=== PATIENT | female | born 1945 | race Caucasian/White ===

== ENCOUNTER → 2016-06-08 | Outpatient (CLI) | payer MEDICARE, OTHER ==
[~2016-06-08] MED LIST: CALC500T49 PO; ESTR0.5T3 PO; PERCOCET PO; VITMTA PO
[2016-06-08 14:16] LABS: ALBUMIN 3.4 GM/DL (3.2-5.2); ALBUMIN/GLOBULIN RATIO 1.13 (1.00-1.93); BILIRUBIN,TOTAL 0.5 MG/DL (0.2-1.0); CALCIUM LEVEL 9.1 MG/DL (8.8-10.2); CREATININE FOR GFR 1.55 MG/DL (0.55-1.02); POTASSIUM SERUM 4.1 MEQ/L (3.5-5.1); TOTAL PROTEIN 6.4 GM/DL (6.4-8.2)
== END ==
LOC: M LAB 12:11
PROVIDERS: ATTEND Internal Medicine
DX: E55.9 Vitamin D deficiency, unspecified (principal); R00.1 Bradycardia, unspecified

== ENCOUNTER → 2016-06-08 | Outpatient (CLI) | payer MEDICARE, OTHER | LOC: M LAB 12:15 | PROVIDERS: ATTEND Internal Medicine Endocrinology, Diabetes & Metabolism | DX: M85.89 Other specified disorders of bone density and structure, multiple sites (principal) ==

== ENCOUNTER → 2016-06-13 | Outpatient (CLI) | payer MEDICARE, OTHER ==
[2016-06-13 14:34] LABS: ALBUMIN 3.5 GM/DL (3.2-5.2); ANION GAP 5 MEQ/L (8-16); BLOOD UREA NITROGEN 26 MG/DL (7-18); CALCIUM LEVEL 8.8 MG/DL (8.8-10.2); CARBON DIOXIDE LEVEL 31 MEQ/L (21-32); CHLORIDE LEVEL 107 MEQ/L (98-107); CREATININE FOR GFR 0.87 MG/DL (0.55-1.02); GLOMERULAR FILTRATION RATE > 60.0 (>39); GLUCOSE, FASTING 91 MG/DL (83-110); PHOSPHORUS LEVEL 3.7 MG/DL (2.5-4.9); POTASSIUM SERUM 4.1 MEQ/L (3.5-5.1); SODIUM LEVEL 143 MEQ/L (136-145)
== END ==
LOC: M LAB 12:55
PROVIDERS: ATTEND Internal Medicine
DX: R94.4 Abnormal results of kidney function studies (principal)

== ENCOUNTER → 2016-06-28 | Outpatient (CLI) | payer MEDICARE, OTHER ==
--- NOTE | 2016-06-28 16:42 | REP ---
Bilateral carotid artery duplex ultrasound: Peak flow velocity analysis: RIGHT LEFT ICA. Peak flow velocity cm/sec 60 50 ICA Diastolic flow velocity cm/sec 24 20 ICA/CCA Ratio 0.46 0.73 There is mild atheromatous plaque extending from the bulbs into the proximal right and left ICA is and into the right and left proximal ECA is. Peak flow velocities are normal bilaterally. The findings indicate less than 50% narrowing bilaterally. There is no significant stenosis on the right or the left. There is antegrade flow in the vertebral arteries bilaterally Signed by Bryant Edmonds MD 06/28/2016 04:33 P
== END ==
LOC: M RAD 14:50
PROVIDERS: ATTEND Internal Medicine
DX: H53.9 Unspecified visual disturbance (principal)

== ENCOUNTER → 2016-07-03 | Outpatient (CLI) | payer MEDICARE, OTHER | LOC: M LAB 16:08 | PROVIDERS: ATTEND Internal Medicine Endocrinology, Diabetes & Metabolism | DX: M81.0 Age-related osteoporosis without current pathological fracture (principal) ==

== ENCOUNTER → 2016-09-17 | Outpatient (CLI) | payer MEDICARE, OTHER ==
--- NOTE | 2016-09-17 09:29 | REP ---
RIGHT HAND, COMPLETE: 09/17/2016. COMPARISON: 11/22/2014. CLINICAL HISTORY: 5th finger trauma. FINDINGS: The four views demonstrate an old healed and remodeled spiral fracture of the shaft of the 5th metacarpal. There is a new fracture at the proximal metaphysis of the proximal phalanx of the 5th digit. There is a component extending to the articular surface of the phalanx at the 5th MCP joint without displacement. Very minimal angulation of the distal fragment with the fracture apex toward the radius. No other acute findings. IMPRESSION: 1. Mildly comminuted intra-articular fracture proximal metaphysis proximal phalanx 5th digit without significant displacement and only mild angulation. 2. Old spiral fracture of the 5th metacarpal shaft is healed and remodeled. No other acute finding. Signed by Gray Mckoy MD 09/17/2016 10:55 A
== END ==
LOC: M WUC 08:40
PROVIDERS: ATTEND Physician Assistant
DX: M25.541 Pain in joints of right hand (principal)

== ENCOUNTER → 2017-01-05 | Outpatient (REF) | payer MEDICARE, OTHER ==
[2017-01-05 16:29] LABS: CALCIUM LEVEL 9.4 MG/DL (8.8-10.2)
== END ==
LOC: M LABDRAW1 14:04
PROVIDERS: ATTEND Internal Medicine Endocrinology, Diabetes & Metabolism
DX: M81.0 Age-related osteoporosis without current pathological fracture (principal); E55.9 Vitamin D deficiency, unspecified

== ENCOUNTER → 2017-07-17 | Outpatient (CLI) | payer MEDICARE, OTHER ==
[2017-07-17 12:27] LABS: CALCIUM LEVEL 9.6 MG/DL (8.8-10.2)
== END ==
LOC: M LRY 10:18
DX: M81.0 Age-related osteoporosis without current pathological fracture (principal)
CPT/HCPCS: 82310

== ENCOUNTER → 2018-01-17 | Outpatient (REF) | payer MEDICARE, OTHER ==
[2018-01-17 12:35] LABS: CALCIUM LEVEL 9.3 MG/DL (8.8-10.2)
[2018-01-17 12:42] LABS: TOTAL 25(OH) VITAMIN D 59.6 NG/ML (30.0-100.0)
== END ==
LOC: M LABDRAW1 11:26
DX: M81.0 Age-related osteoporosis without current pathological fracture (principal); E55.9 Vitamin D deficiency, unspecified
CPT/HCPCS: 82310

== ENCOUNTER → 2018-07-24 | Outpatient (REF) | payer MEDICARE, OTHER | LOC: M LABDRAW1 13:04 | PROVIDERS: ATTEND Internal Medicine Endocrinology, Diabetes & Metabolism | DX: M81.0 Age-related osteoporosis without current pathological fracture (principal) ==

== ENCOUNTER 2018-09-02 08:36 | Emergency (ER) | payer MEDICARE, OTHER ==
[~2018-09-02] VITALS: Ht 157.5 cm; Wt 61.0 kg
[2018-09-02] MEDS ORDERED: METOCLOPRAMIDE INJ 10MG/2ML VIAL (J2765) IV ONE (09:30)
[2018-09-02] MEDS ORDERED: ISOVUE-370 76% 100ML VIAL (Q9967) As Ordered ONE (09:40)
[2018-09-02 09:42] LABS: BASO % 0.2 % (0.0-1.0); EOS % 0.2 % (0.0-3.0); HEMATOCRIT 39.7 % (36.0-47.0); HEMOGLOBIN 13.8 g/dl (12.0-15.5); LYMPH # 0.7 10^3/uL (1.5-4.5); LYMPH % 5.8 % (24.0-44.0); MEAN CORPUSCULAR HEMOGLOBIN 31.8 pg (27.0-33.0); MEAN CORPUSCULAR HGB CONC 34.8 g/dl (32.0-36.5); MEAN CORPUSCULAR VOLUME 91.5 fl (80.0-96.0); MONO # 0.6 10^3/uL (0.0-0.8); NEUTROPHILS # 9.9 10^3/uL (1.8-7.7); NEUTROPHILS % 88.4 % (36.0-66.0); PLATELET COUNT, AUTOMATED 114 10^3/uL (150-450); RED BLOOD COUNT 4.34 10^6/uL (4.00-5.40); WHITE BLOOD COUNT 11.2 10^3/uL (4.0-10.0)
[2018-09-02 09:53] LABS: INR 1.02; PARTIAL THROMBOPLASTIN TIME 20.3 SECONDS (25.4-37.6); PROTHROMBIN TIME 13.5 SECONDS (12.1-14.4)
--- NOTE | 2018-09-02 10:46 | REP ---
Left hand: Four views. History: Pain after falling from a horse. Findings: There is moderate soft tissue swelling dorsally over the carpus. There is an old distal radial fracture with volar screw plate fixation device in place. There is an old fragmented an ununited ulnar styloid chip fracture. No acute radial or ulnar fracture is appreciated. No carpal fractures seen. There is moderate osteoarthritis at the first carpometacarpal articulation. Osteoarthritic spurring is noted at the IP joint of the thumb and the DIP joints of the index, long and small fingers. Impression: Old distal radial and ulnar fractures. No acute fracture seen. Osteoarthritis at the first carpometacarpal joint. Dorsal carpal swelling. Electronically Signed by Jaylan Machado MD 09/02/2018 03:38 P
--- NOTE | 2018-09-02 10:49 | REP ---
CT thoracic spine without contrast. HISTORY: Trauma COMPARISON : None There is a fracture of the right C7 transverse process. There are fractures of the right and left T1 lamina, spinous process and right transverse process. There is a burst fracture of the tip of vertebral body with minimal height loss and minimal retropulsion. There are fractures of the right T2 pedicle, right T2 millisecond lamina. There are fractures of the left T2 facet and lamina. There is a fracture of the right T2 transverse process. There is a fracture of the superior endplate of the T3 vertebral body. There is no height loss. There is a fracture of the right 3rd rib. There is no subluxation. There is no definite disc bulge or herniation. There is an old compression fracture of the T12 vertebral body with minimal height loss. IMPRESSION: There are fractures of the C7, T1 and T2 levels as described above. Electronically Signed by Tyrese Miranda MD 09/02/2018 10:40 A
--- NOTE | 2018-09-02 10:51 | REP ---
CT CHEST WITH IV CONTRAST: TECHNIQUE: Axial contrast enhanced images from the thoracic inlet to the upper abdomen using 100 mL Isovue 370 intravenous contrast material with multiplanar reformations. Mild dependant atelectatic changes are seen predominately in the right lung. There is no pleural or pericardial effusion. Heart is normal in size. No adenopathy is seen. Thoracic aorta demonstrates homogenous opacification with no evidence of traumatic injury. Visualized upper abdominal structures are unremarkable. Note is made of a fracture of the body of T2. There are also fractures of the spinous process of T1 and the right transverse process of T1. No other fracture is seen of the visualized osseous structures. IMPRESSION: No acute traumatic findings in the chest as discussed above. There are fractures of the body of T2, also of the spinous process and right transverse process of T1. Please see CT thoracic spine report for more details. Electronically Signed by Bryant Segura MD 09/03/2018 11:31 A
--- NOTE | 2018-09-02 10:57 | REP ---
CT Lumbar Spine without contrast HISTORY: Trauma COMPARISON: None There is no disc bulge or herniation at the L1-2 and L2-3 levels. The nerves exit the neural foramina without compression. A diffuse disc bulge is present at the L3-4 level. There is minimal compression of the thecal sac. There is hypertrophy of the posterior articulating facets. The L3 nerves exit the neural foramina without compression. A diffuse disc bulge is present at the L4-5 level. There is hypertrophy of the ligamenta flava and posterior articulating facets. There are 3 mm of grade 1 spondylolisthesis of L4 and L5. These findings produce moderate central canal stenosis. The L4 nerves exit the neural foramina without compression. A diffuse disc bulge is present at the L5-L1 level. There is minimal compression of the thecal sac. There is hypertrophy of the posterior articulating facets. The L5 nerves exit the neural foramina without compression. The L4-5 intervertebral disc is decreased in height consistent with disc degeneration. There is an old compression fracture of the T12 vertebral body with minimal height loss. IMPRESSION: 1. There is no acute fracture . 2. Diffuse disc bulges at the L3-4 and L5-L1 levels with minimal thecal sac compression. 3. Moderate central canal stenosis at the L4-5 level secondary to disc bulge, ligamentous and facet hypertrophy and grade 1 spondylolisthesis. Electronically Signed by Tyrese Miranda MD 09/02/2018 10:49 A
--- NOTE | 2018-09-02 10:58 | REP ---
Left wrist series: Four views. History: Injury in a fall from a horse. Findings: There is a screw plate fixation device along the volar aspect of the distal radius consistent with previous fracture. There is an old ulnar styloid chip fracture with ununited fragments. There is dorsal carpal swelling. Frontal and oblique radiographs show an acute appearing fracture line in the distal radial metaphysis suggesting an acute nondisplaced fracture. No carpal fracture is seen. There is osteoarthritis at the first carpometacarpal articulation. Impression: Nondisplaced acute fracture of the distal radius. Status post volar screw plate fixation for prior radial fracture. Old fragmented ununited ulnar styloid fracture. Osteoarthritis of the first [employer] joint. Electronically Signed by Jaylan Machado MD 09/02/2018 03:39 P
--- NOTE | 2018-09-02 10:59 | REP ---
Left foot series: Four views. History: Pain after trauma. Findings: Four views of the left foot demonstrate acute slightly impacted fractures of the distal metaphyses of the third and fourth metatarsals. There is osteoarthritic spurring at the first MTP joint. There is old appearing post traumatic deformity of the proximal phalanx of the fifth toe. Impression: Fractures of the distal third and fourth metatarsals. Electronically Signed by Jaylan Machado MD 09/02/2018 03:40 P
[2018-09-02] MEDS ORDERED: B COTAB3 PO (11:26)
[2018-09-02] MEDS ORDERED: D 1010004 PO (11:26)
[2018-09-02] MEDS ORDERED: NS 1,000 ML IV SCH (11:30)
[2018-09-02] MEDS ORDERED: MORPHINE 2 MG/ML 1ML SYRINGE (J2270) IV ONE (12:00)
--- NOTE | 2018-09-02 12:27 | REP ---
CT cervical spine without contrast HISTORY: Trauma COMPARISON: None Disc bulges are present at the C3-4 and C4-5 levels. Disc bulges with associated osteophyte formation are present at the C5-6 and C6-7 levels. There is minimal narrowing of the spinal canal. Uncinate process and/or facet hypertrophy are present at the C3-4, C5-6 and C6-7 levels. These findings produce minimal narrowing of the neural foramina. The C5-6 and C6-7 intervertebral discs are decreased in height consistent with disc degeneration. There is a fracture of the right C7 transverse process. There are fractures of the right and left T1 lamina, spinous process and right transverse process. There is a burst fracture of the T2 vertebral body with minimal height loss and minimal retropulsion. There are fractures of the right T2 pedicle, right T2 facet and lamina. There are fractures of the left T2 facet and lamina. There is a fracture of the right T2 transverse process. There is a fracture of the superior endplate of the T3 vertebral body. There is no height loss. There is a fracture of the right 3rd rib. There is no subluxation. IMPRESSION: Impression: 1. There is cervical spondylosis at the C3-4 through C6-7 levels. 2. There are multiple fractures at the C7, T1 and T2 levels as described above. Electronically Signed by Tyrese Miranda MD 09/02/2018 12:19 P
[2018-09-02 13:37] VITALS: BP 134/75
== END 2018-09-02 13:41 | disposition short-term general hospital (02) ==
LOC: M ED 08:36 → EDBD 08:36 → M ED 13:41
DX: S12.600A Unspecified displaced fracture of seventh cervical vertebra, initial encounter for closed fracture (principal); S22.019A Unspecified fracture of first thoracic vertebra, initial encounter for closed fracture; S22.029A Unspecified fracture of second thoracic vertebra, initial encounter for closed fracture; S62.102A Fracture of unspecified carpal bone, left wrist, initial encounter for closed fracture; S92.902A Unspecified fracture of left foot, initial encounter for closed fracture; S22.31XA Fracture of one rib, right side, initial encounter for closed fracture; V80.010A Animal-rider injured by fall from or being thrown from horse in noncollision accident, initial encounter; Y92.89 Other specified places as the place of occurrence of the external cause; M85.9 Disorder of bone density and structure, unspecified; Z79.899 Other long term (current) drug therapy
CPT/HCPCS: 29125; 36415; 71260; 72125; 72128; 72131; 73110; 73130; 73630; 80047; 85025; 85610; 85730; 86850; 86900; 86901; 96361; 96374; 96375; 99285; J2270; J2765; Q9967

== ENCOUNTER → 2018-09-15 | Outpatient (CLI) | payer MEDICARE, OTHER ==
[~2018-09-15] MED LIST changes: +B COTAB3 PO; +D 1010004 PO
--- NOTE | 2018-09-16 15:12 | REP ---
Left foot five views: Comparison is 09/02/2018. The previously identified fractures in the distal third and fourth digit metatarsals are maintained in satisfactory position alignment without interval position shift. Mild osteoarthritis of the great toe MTP articulation is unchanged. No other fracture is identified. There are no calcifications or foreign bodies. Electronically Signed by Bryant Edmonds MD 09/15/2018 09:17 A
== END ==
LOC: M WUC 08:55
PROVIDERS: ATTEND Physician Assistant
DX: M19.072 Primary osteoarthritis, left ankle and foot (principal)

== ENCOUNTER → 2019-01-29 | Outpatient (REF) | payer MEDICARE, OTHER ==
[2019-01-29 15:33] LABS: CALCIUM LEVEL 9.2 MG/DL (8.8-10.2)
== END ==
LOC: M LABDRAW1 11:25
PROVIDERS: ATTEND Internal Medicine Endocrinology, Diabetes & Metabolism
DX: E55.9 Vitamin D deficiency, unspecified (principal); Z79.899 Other long term (current) drug therapy

== ENCOUNTER → 2019-04-08 | Outpatient (REF) | payer MEDICARE, OTHER | LOC: M LAB REF 09:26 | PROVIDERS: ATTEND Dermatology | DX: D23.71 Other benign neoplasm of skin of right lower limb, including hip (principal) | CPT/HCPCS: 11102; 88305; G0463 ==